=== PATIENT | male | born 1985 | race Caucasian/White ===

== ENCOUNTER 2019-06-28 08:49 | Inpatient (IN) | payer OTHER ==
[~2019-06-28] VITALS: Ht 170.2 cm; Wt 149.7 kg
[2019-06-28 08:56] VITALS: BP_SYST 129
--- NOTE | 2019-06-28 09:00 | NUR ---
Patient to ER bed to gown for evaluation. Side rails up.
--- NOTE | 2019-06-28 09:13 | NUR ---
pt arrives from home w/ intermittnet CP. Pt does not report any SOB or any other symptoms. EKG done and property assessment monitor placed.
[2019-06-28] MEDS ORDERED: ASPIRIN 81 MG TAB.CHEW PO ONE (09:15)
[2019-06-28] MEDS ORDERED: NITROGLYCERIN 1 INCH (GM) OINT. TP ONE (09:15)
--- NOTE | 2019-06-28 09:30 | NUR ---
ER at bedside examining patient.
--- NOTE | 2019-06-28 09:33 | NUR ---
medicated the pt w/ Aspirin and nittro paste per MD order
--- NOTE | 2019-06-28 09:45 | NUR ---
pt getting a CXR at the bedside.
[2019-06-28 09:58] LABS: BASOPHILS % (AUTO) 0.6 % (0.0-2.0); EOSINOPHILS # (AUTO) 0.1 K/uL (0.0-0.4); EOSINOPHILS % (AUTO) 1.3 % (0.0-4.0); HEMATOCRIT 46.8 % (36-54); HEMOGLOBIN 16.2 g/dL (14.0-18.0); LYMPHOCYTES # (AUTO) 1.3 K/uL (1.0-5.5); LYMPHOCYTES % (AUTO) 17.9 % (20.5-51.5); MEAN CORPUSCULAR HEMOGLOBIN 30 pg (27-31); MEAN CORPUSCULAR HGB CONC 35 % (32-36); MEAN CORPUSCULAR VOLUME 88 fL (79.0-98.0); MONOCYTES # (AUTO) 0.7 K/uL (0.0-1.0); MONOCYTES % (AUTO) 8.7 % (1.7-9.3); NEUTROPHILS # (AUTO) 5.4 K/uL (1.8-7.7); NEUTROPHILS % (AUTO) 71.5 % (40.0-70.0); PLATELET COUNT (AUTO) 214 K/uL (130-430); RED BLOOD CELL COUNT(AUTO) 5.33 MIL/uL (4.2-6.2); RED CELL DISTRIBUTION WIDTH 13.2 % (9.0-15.0); WHITE BLOOD COUNT (AUTO) 7.5 K/uL (4.8-10.8)
[2019-06-28 10:03] LABS: BILIRUBIN,URINE NEGATIVE (NEGATIVE); BLOOD, URINE NEGATIVE (NEGATIVE); CLARITY/URINE CLEAR (CLEAR); COLOR,URINE YELLOW (YELLOW); GLUCOSE,URINE NEGATIVE (NEGATIVE); KETONES,URINE NEGATIVE (NEGATIVE); LEUKOCYTE ESTERASE ,URINE NEGATIVE (NEGATIVE); NITRITE, URINE NEGATIVE (NEGATIVE); PH,URINE 5.5 (5.0-8.0); PROTEIN URINE NEGATIVE (NEGATIVE); UROBILINOGEN,URINE 0.2 (0.2-1.0)
[2019-06-28 10:08] LABS: CALCIUM 9.3 mg/dL (8.4-11.0); CREATININE 0.76 mg/dL (0.55-1.30); POTASSIUM 4.2 mmol/L (3.5-5.1)
[2019-06-28 10:09] LABS: PROTHROMBIN TIME 9.9 SECS (9.5-12.5)
[2019-06-28 10:13] LABS: BARBITURATE, URINE NEGATIVE (NEG <=200); BENZODIAZEPINE, URINE NEGATIVE (NEG <=150); CANNABINOID, URINE NEGATIVE (NEG <=50); COCAINE, URINE NEGATIVE (NEG <=150); METHAMPHETAMINES SCREEN,URINE NEGATIVE (NEG <=500); OPIATE, URINE NEGATIVE (NEG <=100); PHENCYCLIDINE SCREEN,URINE NEGATIVE (NEG <=25); UR TRICYCLIC ANTIDEPRESSANTS NEGATIVE (NEG <=300); URINE AMPHETAMINE NEGATIVE (NEG <=500); URINE OXYCODONE SCREEN NEGATIVE (NEG <=100); URINE PROPOXYPHENE SCREEN NEGATIVE (NEG <=300)
[2019-06-28 10:14] LABS: URINE METHADONE NEGATIVE (NEG <=200)
[2019-06-28 10:14] LABS: ALBUMIN 3.8 g/dL (3.4-4.8); TOTAL BILIRUBIN 0.5 mg/dL (0.0-1.0)
--- NOTE | 2019-06-28 11:20 | NUR ---
# 22 gauge angiocath placed to LFA. Use of asceptic technique. Opsite placed over site. Blood return noted. Blood for lab drawn from site. Flushed with 10 cc of normal saline. No evidence of infiltration noted. Patient tolerated well.
--- NOTE | 2019-06-28 12:00 | NUR ---
Unable to obtain medical records from [facility] . Unalbe to obtain d/t equipment issues in the sending hospital
--- NOTE | 2019-06-28 12:19 | NUR ---
DR. Claudia LOUIS CALLED AND LEFT MESSAGE WITH [employer]ARDROBE ASSISTANT WILL PAGE AND CALL BACK
--- NOTE | 2019-06-28 12:39 | NUR ---
Patient will be admitted to care of Dr. Wong. Admitted to tele unit. Will go to room 125-a. Belongings list completed. Summary report printed. Report will be given at the bedside.
--- NOTE | 2019-06-28 12:51 | NUR ---
ADMIT NOTE Received pt from ER to the floor with a diagnosis of CHEST OAIN. Admission process initiated. patient oriented to pain management, safety and call light-teach back done.
--- NOTE | 2019-06-28 13:29 | NUR ---
CONSULTATION PAGED/CALLED Reason for Consultation: CHEST PAIN Person Who was Notified: ESTHELA Consulting Physician: Michelle LOUIS Psychology Lecturer Specialty: CARDIO Ordering Physician: Julisa LOUIS
[2019-06-28 13:37] VITALS: BP_SYST 132
--- NOTE | 2019-06-28 14:00 | NUR ---
PT RESTING WELL IN BED,NO C/O PAIN OR DISCOMFORT,NEEDS ATTENDED,CALL LIGHT & PERSONAL ITEMS WITHIN PT REACH,SAFETY MAINTAINED.
[2019-06-28] MEDS ORDERED: FLU VACC QS2019-20 36MOS UP/PF 60 MCG/0.5 ML SYRINGE I.M. PRN (14:15)
--- NOTE | 2019-06-28 16:00 | NUR ---
CAME AND SEEN PT,CONTINUE TO MONITOR PT.
--- NOTE | 2019-06-28 18:00 | NUR ---
GIVEN FLU VACCINE PER ORDER.NO ADVERSE REACTIONS NOTED,PT C/O HEADACHE,GIVE TYLENOL 650MG PO PRN ORDER FOR PAIN.
[2019-06-28] MEDS ORDERED: ACETAMINOPHEN 325 MG TABLET PO PRN ×2 (18:15→18:45)
[2019-06-28] MEDS ORDERED: HYDROcodone/ACETAMIN 5-325 MG TAB (NORCO/ VICODIN) PO PRN (18:45)
[2019-06-28] MEDS ORDERED: LORazepam 2 MG/ML VIAL IVP PRN (18:45)
[2019-06-28] MEDS ORDERED: HYDROcodone/ACETAMIN 10-325 MG TAB PO PRN (18:45)
[2019-06-28] MEDS ORDERED: ONDANSETRON HCL 4 MG/2 ML VIAL IVP PRN (18:45)
[2019-06-28 19:30] VITALS: BP_SYST 149
--- NOTE | 2019-06-28 19:45 | NUR ---
recieved on bed awake,alert with no complaints of chest pain.with call light within reach
--- NOTE | 2019-06-28 21:15 | NUR ---
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 Dr Wong will be informed,
--- NOTE | 2019-06-28 21:50 | NUR ---
DR LOUIS PAGED AND INFORMED ABOUT THE PATIENT GOING HOME AGAINST MEDICAL ADVICE ,WITH NO FURTHER ORDRD
[2019-06-28] MEDS ORDERED: NORMAL SALINE 5 ML DISP.SYRIN IVF SCH ×2 (22:00)
== END 2019-06-28 21:15 | disposition left against medical advice (07) | DRG 313 ==
LOC: SED 08:49 → STU 12:29
PROVIDERS: ADMIT Preventive Medicine Preventive Medicine/Occupational Environmental Medicine; ATTEND Preventive Medicine Preventive Medicine/Occupational Environmental Medicine
DX: R07.9 Chest pain, unspecified (principal); Z53.29 Procedure and treatment not carried out because of patient's decision for other reasons; R73.9 Hyperglycemia, unspecified
CPT/HCPCS: 36415; 71045; 80053; 80307; 81003; 83880; 84484; 85025; 85610-TC; 93005; 99285; G0378; Q2037